=== PATIENT | female | born 1995 | race Caucasian/White ===

== ENCOUNTER 2020-11-03 18:51 | Emergency (ER) | payer OTHER ==
--- NOTE | 2020-11-03 19:59 | RAD ---
Study: XR CHEST 1V Indication: Chest pain. Comparison: None. Findings: The cardiomediastinal silhouette and fara are within normal limits. No localized airspace opacity, pl eural effusion or pneumothorax. Impression: No acute radiographic abnormality of the chest. Electronically signed by: INDERJIT LEVY MD (11/03/2020 7:57 PM) [facility]
--- NOTE | 2020-11-03 20:52 | PHYS DOC ---
Adult General Chief Complaint Chief Complaint: ANXIETY/PANIC ATTACK HPI HPI Patient is an otherwise healthy 25-year-old female who presents with a chief complaint of anxiety attack. States she has had a history of anxiety and her primary care started on Celexa about a week ago but has not taken yet. States earlier today she had an anxiety attack but is feeling better now. States she did have another one earlier in the week and her physician told her to double her dose starting today. Denies recent traumas, travels, illnesses, fever, chest pain, shortness of breath, abdominal pain, nausea, vomiting, dysuria, hematuria or blood in the stool. Review of Systems Review of Systems Constitutional: Denies fever or chills [] Eyes: Denies change in visual acuity, redness, or eye pain [] HENT: Denies nasal congestion or sore throat [] Respiratory: Denies cough or shortness of breath [] Cardiovascular: No additional information not addressed in HPI [] GI: Denies abdominal pain, nausea, vomiting, bloody stools or diarrhea [] : Denies dysuria or hematuria [] Musculoskeletal: Denies back pain or joint pain [] Integument: Denies rash or skin lesions [] Neurologic: Denies headache, focal weakness or sensory changes [] Endocrine: Denies polyuria or polydipsia [] All other systems were reviewed and found to be within normal limits, except as documented in this note. Physical Exam Physical Exam Constitutional: Well developed, well nourished, no acute distress, non-toxic appearance. [] HENT: Normocephalic, atraumatic, oropharynx moist, nose normal. [] Eyes: conjunctiva normal, no discharge. [] Neck: Normal range of motion, no tenderness, supple, no stridor. [] Cardiovascular:Heart rate regular rhythm, no murmur [] Lungs & Thorax: Bilateral breath sounds clear to auscultation [] Abdomen: soft, no tenderness, no masses, no pulsatile masses. [] Skin: Warm, dry, no erythema, no rash. [] Extremities: No tenderness, ROM intact, no edema. [] Neurologic: Alert and oriented X 3, no focal deficits noted. [] Psychologic: Affect normal, judgement normal, mood normal. [] EKG EKG Rate of 65, QRS of 74, QTc of 429 no STEMI, PACs [] Radiology/Procedures Radiology/Procedures [] Heart Score C/O Chest Pain: No Risk Factors: Risk Factors: DM, Current or recent (<one month) smoker, HTN, HLP, family history of CAD, obesity. Risk Scores: Risk Factors: DM, Current or recent (<one month) smoker, HTN, HLP, family history of CAD, obesity. Course & Med Decision Making Course & Med Decision Making Patient is a 25-year-old female presents with anxiety attack Vital signs not concerning. Physical exam as above. Given 10 mg Valium. EKG noted above and normal. Patient otherwise asymptomatic here in the ED. Advised to hold her Celexa if you think she is having an adverse reaction and call her primary care again in the morning to discuss this and see what they would like to do going forward. Gave return precautions to the ED. Patient grateful, verbalized understanding agreement plan of discharge. [] Dragon Disclaimer Dragon Disclaimer This electronic medical record was generated, in whole or in part, using a voice recognition dictation system. Departure Departure: Impression: Primary Impression: Panic attack Additional Impression: Anxiety Disposition: 01 HOME / SELF CARE / HOMELESS Condition: GOOD Referrals: BIGG ROGERS (PCP) Patient Instructions: Anxiety and Panic Attacks Additional Instructions: Thank you for coming into the emergency department tonight and allowing us to take care of you. Please read all the attached information above to go over things we discussed. Please hold your medication until tomorrow and call your primary care physician as soon as possible to discuss your ED visit, and symptoms and what they would like you to do going forward. Please come back to the ED with new or concerning symptoms as discussed. Problem Qualifiers SHERRY FREEMAN MD Nov 03, 2020 20:52
[2020-11-03] MEDS ORDERED: diazePAM 5 MG TABLET. PO ONE (21:15)
[2020-11-03 22:00] LABS: BACTERIA,URINE 0 /HPF (0-FEW); BILIRUBIN,URINE NEG (NEG); CLARITY,URINE CLEAR; COLOR,URINE YELLOW; GLUCOSE,URINE NEG (NEG); NITRITE,URINE NEG (NEG); RBC,URINE 0 /HPF (0-2); SQUAMOUS EPITHELIAL CELL,UR MOD /LPF; UROBILINOGEN,URINE 0.2 mg/dL (0.2 mg/dL); WBC,URINE 0 /HPF (0-4)
--- NOTE | 2020-11-04 06:52 | EKG ---
[address] [address] Test Date: 2020-11-03 Test Time: 20:01:41 Pat Name: MEKHI SMITH Department: Room: Gender: F Loss Control Manager: LISANDRA : 1995 Requested By: SHERRY FREEMAN Order Number: [id number] Reading MD: Measurements Intervals Fowler Rate: 65 P: 0 TN: 98 QRS: 79 QRSD: 74 T: 63 QT: 412 QTc: 429 Interpretive Statements SINUS RHYTHM ATRIAL PREMATURE COMPLEX(ES) OTHERWISE NORMAL ECG RI6.02 No previous ECG available for comparison
== END 2020-11-03 21:20 | disposition home or self-care (01) ==
LOC: ER 18:51
DX: F41.0 Panic disorder [episodic paroxysmal anxiety] (principal)
CPT/HCPCS: 36415; 71045; 81001; 81025; 84484; 93005; 99285-25